=== PATIENT | male | born 1995 | race Caucasian/White ===

== ENCOUNTER 2016-09-30 20:30 | Emergency (ER) | payer SELFPAY ==
--- NOTE | ~2016-09-30 | EKG ---
PATIENT: EMILY ELIAS UNIT #: [id number] Ventricular Rate: 86 BPM Atrial Rate: 86 BPM P-R Interval: 154 ms QRS Duration: 104 ms Q-T Interval: 348 ms QTC Calculation(Bezet): 416 ms P [place]: 84 degrees Calculated R [place]: 96 degrees Calculated T [place]: 69 degrees Diagnosis Line: Normal sinus rhythm with sinus arrhythmia Diagnosis Line: Biatrial enlargement Diagnosis Line: Rightward axis Diagnosis Line: Pulmonary disease pattern Diagnosis Line: RSR' or QR pattern in V1 suggests right Diagnosis Line: ventricular conduction delay Diagnosis Line: Abnormal ECG Diagnosis Line: When compared with ECG of 27-JUN-2016 16:10, Diagnosis Line: No significant change was found Diagnosis Line: Confirmed by CHRISTI OLIVER MD ([id number]) on Diagnosis Line: 10/02/2016 9:38:06 PM INTERPRETING MD: MELODY NGUYEN
[~2016-09-30 20:30] MED LIST: NAPROXEN PO
[2016-10-01] MEDS ORDERED: NO MEDICATIONS (00:33)
== END 2016-10-01 00:08 | disposition home or self-care (01) ==
LOC: CED 20:30
DX: Z53.21 Procedure and treatment not carried out due to patient leaving prior to being seen by health care provider (principal)
CPT/HCPCS: 93005

== ENCOUNTER 2016-10-01 00:23 | Emergency (ER) | payer SELFPAY ==
[2016-10-01] MEDS ORDERED: NO MEDICATIONS (00:33)
== END 2016-10-01 01:03 | disposition home or self-care (01) ==
LOC: SED 00:23
DX: M76.811 Anterior tibial syndrome, right leg (principal)
CPT/HCPCS: 99283